=== PATIENT | male | born 1970 | race Two or more races ===

== ENCOUNTER 2024-04-29 21:49 | Inpatient (IN) | payer MEDICAID, OTHER ==
[~2024-04-29] VITALS: Ht 172.7 cm; Wt 84.1 kg
[2024-04-29 22:30] LABS: Basophils # (auto) 0.1 10 ^3/uL (0-0.2); Basophils % (auto) 0.8 % (0.0-2.0); Eosinophils # (auto) 0 10 ^3/uL (0-0.8); Eosinophils % (auto) 0.3 % (0.0-7.0); Hematocrit 29.2 % (41.0-53.0); Hemoglobin 9.6 g/dL (13.5-17.5); Lymphocytes # (auto) 0.5 10 ^3/uL (0.4-5.4); Lymphocytes % (auto) 7.7 % (10.0-50.0); Mean Corpuscular Hemoglobin 27.9 pg (28.0-32.0); Mean Corpuscular Hgb Conc. 32.8 g/dL (32.0-36.0); Mean Corpuscular Volume 85.1 fL (80.0-100.0); Monocytes # (auto) 0.5 10 ^3/uL (0-1.3); Monocytes % (auto) 6.9 % (0.0-12.0); Neutrophils # (auto) 5.5 10 ^3/uL (1.6-8.6); Neutrophils % (auto) 84.3 % (37.0-80.0); Nucleated Red Blood Cells % 0.1 %; Platelet Count (auto) 227 10^3/uL (140-450); Red Blood Cells 3.44 10^6/uL (4.5-5.90); Red Cell Distribution Width 18.4 % (11.8-14.3); White Blood Cell 6.6 10^3/uL (4.4-10.8)
[2024-04-29 22:42] VITALS: PULSE 80; RESP 20; O2SAT 97
[2024-04-29 22:47] LABS: Alanine Aminotransferase 57 U/L (7-40); Albumin 3.7 g/dL (3.2-4.8); Alkaline Phosphatase 70 U/L (46-116); Anion Gap 10 (5-15); Aspartate Aminotransferase 65 U/L (13-40); Bilirubin, Total 0.3 mg/dL (0.2-1.0); Blood Urea Nitrogen 58 mg/dL (9-23); Calcium 8.4 mg/dL (8.7-10.4); Carbon Dioxide 20 mmol/L (20-30); Chloride 108 mmol/L (98-107); Glucose 53 mg/dL (74-106); Potassium 4.4 mmol/L (3.5-5.1); Sodium 138 mmol/L (136-145); Total Protein 6.2 g/dL (5.7-8.2)
[2024-04-29] MEDS: DEXTROSE 10% 1,000 ML IV ONE (23:42)
[2024-04-30] MEDS: ASPirin-EC 325mg tab PO ONE (00:43)
[2024-04-30 00:57] LABS: Urine Bacteria None Seen /hpf (None Seen)
[2024-04-30] MEDS ORDERED: DOCUSATE SOD 100 MG CAP PO PRN (01:00)
[2024-04-30] MEDS ORDERED: IBUPROFEN 600 MG TAB PO PRN (01:00)
[2024-04-30] MEDS ORDERED: MORPHINE SULFATE INJ 2 MG/ml SYRG IV PRN ×2 (01:00→01:15)
[2024-04-30] MEDS: amLODIPine BESYLATE 5 MG TAB PO ONE (01:00)
[2024-04-30] MEDS ORDERED: ACETAMINOPHEN 325 MG TAB PO PRN (01:00)
[2024-04-30] MEDS ORDERED: ONDANSETRON HCL 4 MG/2 ML VIAL IV PRN (01:00)
[2024-04-30] MEDS ORDERED: HYDROcodone-ACET 5/325MG TAB PO PRN (01:00)
[2024-04-30] MEDS ORDERED: NITROGLYCERIN 0.4 MG SL TAB SL PRN (01:15)
[2024-04-30 01:48] LABS: Urine Blood 2+ /uL (Negative); Urine Clarity Clear (Clear); Urine Color Light-Yellow (Yellow); Urine Protein, UAD 3+ (Negative); Urine Specific Gravity 1.013 (1.001-1.035); Urine Urobilinogen Normal (Negative); Urine WBC 4 /hpf (0 - 3)
[2024-04-30] MEDS: DEXTROSE (50%) 50ML SYRG IV PRN (02:19)
[2024-04-30] MEDS: hydrALAZINE HCL 20 MG/ML VL IV PRN (02:38)
[2024-04-30] MEDS: InsuLIN REG 1unit/0.01ml Soln (100units/ml) SC SCH (04:00)
[2024-04-30] MEDS: ACCU-CHEK COMFORT CURVE STRIP VI SCH (04:04)
[2024-04-30] MEDS: SODIUM CHLOR 0.9% PF (SALINE LOCK) 10ML VIAL/SYR IV SCH (06:06)
[2024-04-30] MEDS: cloNIDine HCL 0.1 MG TAB PO PRN (06:09)
[2024-04-30 07:28] VITALS: PULSE 78; RESP 21; O2SAT 97
[2024-04-30] MEDS: DEXTROSE 10% 1,000 ML IV SCH (07:35)
[2024-04-30] MEDS: ASPirin 81 mg TAB PO SCH (10:19)
[2024-04-30] MEDS: B-COMPLEX W/ C & FOLIC ACID(NEPHROVITE TAB) PO SCH (10:19)
[2024-04-30] MEDS: CARVEDILOL 12.5 MG TAB PO SCH (10:21)
[2024-04-30] MEDS: amLODIPine BESYLATE 5 MG TAB PO SCH (10:21)
[2024-04-30 11:37] LABS: Chloride 110 mmol/L (98-107); Potassium 3.6 mmol/L (3.5-5.1); Sodium 138 mmol/L (136-145)
[2024-04-30 11:38] LABS: Anion Gap 12 (5-15); Carbon Dioxide 16 mmol/L (20-30)
[2024-04-30 11:39] LABS: Calcium 7.8 mg/dL (8.7-10.4)
[2024-04-30 11:43] LABS: Blood Urea Nitrogen 57 mg/dL (9-23); Glucose 71 mg/dL (74-106)
[2024-04-30 12:22] LABS: Magnesium 1.4 mg/dL (1.6-2.6)
[2024-04-30 12:24] LABS: Phosphorus 5.3 mg/dL (2.4-5.1)
[2024-04-30 12:49] LABS: Basophils # (auto) 0 10 ^3/uL (0-0.2); Eosinophils # (auto) 0.1 10 ^3/uL (0-0.8); Eosinophils % (auto) 1.4 % (0.0-7.0); Monocytes # (auto) 0.6 10 ^3/uL (0-1.3); Monocytes % (auto) 11.1 % (0.0-12.0); Platelet Count (auto) 192 10^3/uL (140-450)
[2024-04-30 12:51] LABS: Basophils % (auto) 0.5 % (0.0-2.0); Hematocrit 25.4 % (41.0-53.0); Lymphocytes # (auto) 0.7 10 ^3/uL (0.4-5.4); Lymphocytes % (auto) 14.3 % (10.0-50.0); Mean Corpuscular Hemoglobin 27.8 pg (28.0-32.0); Mean Corpuscular Hgb Conc. 31.5 g/dL (32.0-36.0); Mean Corpuscular Volume 88.2 fL (80.0-100.0); Neutrophils # (auto) 3.8 10 ^3/uL (1.6-8.6); Neutrophils % (auto) 72.7 % (37.0-80.0); Nucleated Red Blood Cells % 0.1 %; Red Blood Cells 2.89 10^6/uL (4.5-5.90); Red Cell Distribution Width 18.7 % (11.8-14.3); White Blood Cell 5.2 10^3/uL (4.4-10.8)
[2024-04-30 13:26] LABS: Alanine Aminotransferase 38 U/L (7-40); Albumin 2.8 g/dL (3.2-4.8); Alkaline Phosphatase 52 U/L (46-116); Anion Gap 9 (5-15); Aspartate Aminotransferase 28 U/L (13-40); BUN/Creatinine Ratio 6.3 (10.0-20.0); Bilirubin, Total 0.4 mg/dL (0.2-1.0); Blood Urea Nitrogen 50 mg/dL (9-23); Calcium 7.5 mg/dL (8.7-10.4); Carbon Dioxide 18 mmol/L (20-30); Chloride 107 mmol/L (98-107); Glucose 129 mg/dL (74-106); Potassium 3.8 mmol/L (3.5-5.1); Sodium 134 mmol/L (136-145); Total Protein 4.9 g/dL (5.7-8.2)
[2024-04-30] MEDS: SODIUM CHLORIDE 0.9% 1,000 ML IV SCH ×2 (13:30→16:00)
[2024-04-30 13:41] VITALS: BP 117/64; PULSE 68; RESP 18; TEMP 98.1; O2SAT 98
[2024-04-30 13:50] LABS: Creatinine, Urine 80.76 mg/dL (30.0-125.0)
[2024-04-30 13:52] LABS: Protein, Urine 586.1 mg/dL (0.0-11.9)
[2024-04-30] MEDS: MAGNESIUM SULFATE 1GM/100ML 100 ML IV SCH (16:00)
[2024-04-30 16:16] VITALS: PULSE 69
[2024-04-30 18:02] LABS: Base Excess -8.5 mmol/L (-2.0-2.0)
[2024-04-30] MEDS: FUROSEMIDE 40 MG/4 ML VIAL IV ONE (18:53)
[2024-04-30] MEDS: CALCIUM ACETATE 667 MG CAP PO SCH (18:53)
[2024-04-30] MEDS: MAGNESIUM OXIDE 400 MG TAB PO ONE (18:53)
[2024-04-30 20:00] VITALS: PULSE 68
[2024-04-30 21:00] VITALS: BP 135/82; PULSE 72; RESP 18; TEMP 98.5; O2SAT 100
[2024-04-30] MEDS: SODIUM BICARBONATE 650 MG TAB PO SCH (21:09)
[2024-04-30] MEDS: ATORVASTATIN 20 MG TAB PO SCH (21:09)
[2024-05-01] VITALS (10 sets, daily range): BP systolic 103–154; BP diastolic 52–93; PULSE 64–83; RESP 16–20; TEMP 98–98.5; O2SAT 96–100
[2024-05-01 05:52] LABS: Eosinophils # (auto) 0.2 10 ^3/uL (0-0.8); Hemoglobin 8.4 g/dL (13.5-17.5); Monocytes # (auto) 0.5 10 ^3/uL (0-1.3); White Blood Cell 5.8 10^3/uL (4.4-10.8)
[2024-05-01 05:55] LABS: Basophils # (auto) 0.1 10 ^3/uL (0-0.2); Basophils % (auto) 1.1 % (0.0-2.0); Eosinophils % (auto) 2.8 % (0.0-7.0); Lymphocytes # (auto) 1.2 10 ^3/uL (0.4-5.4); Lymphocytes % (auto) 20.8 % (10.0-50.0); Mean Corpuscular Hemoglobin 27.9 pg (28.0-32.0); Mean Corpuscular Hgb Conc. 32.2 g/dL (32.0-36.0); Mean Corpuscular Volume 86.6 fL (80.0-100.0); Monocytes % (auto) 9.3 % (0.0-12.0); Neutrophils # (auto) 3.8 10 ^3/uL (1.6-8.6); Platelet Count (auto) 198 10^3/uL (140-450); Red Cell Distribution Width 18.4 % (11.8-14.3)
[2024-05-01 06:07] LABS: % Iron Saturation 17.2 % (20-55)
[2024-05-01 06:08] LABS: Alanine Aminotransferase 39 U/L (7-40); Alkaline Phosphatase 52 U/L (46-116); Anion Gap 7 (5-15); BUN/Creatinine Ratio 6.6 (10.0-20.0); Blood Urea Nitrogen 56 mg/dL (9-23); Calcium 7.8 mg/dL (8.7-10.4); Carbon Dioxide 19 mmol/L (20-30); Chloride 110 mmol/L (98-107); Glucose 104 mg/dL (74-106); Magnesium 1.8 mg/dL (1.6-2.6); Potassium 4.6 mmol/L (3.5-5.1); Sodium 136 mmol/L (136-145)
[2024-05-01 06:09] LABS: Albumin 2.9 g/dL (3.2-4.8); Aspartate Aminotransferase 26 U/L (13-40); Bilirubin, Total 0.3 mg/dL (0.2-1.0); Total Protein 5.2 g/dL (5.7-8.2)
[2024-05-01] MEDS: MAGNESIUM OXIDE 400 MG TAB PO SCH (10:00)
[2024-05-01] MEDS: FUROSEMIDE 40 MG/4 ML VIAL IV SCH (10:00)
[2024-05-01] MEDS: ENOXAPARIN SOD 30 MG/0.3 ML SYRINGE SC ONE (10:30)
[2024-05-01] MEDS: ADENOSINE 71 MG in GIVE UN-DILUTED 0 ML IV STA (10:42)
[2024-05-01] MEDS ORDERED: AMLO1TAB23 PO (12:20)
[2024-05-01] MEDS ORDERED: HYDR50TA47 PO (12:20)
[2024-05-01] MEDS ORDERED: FURO40TA4 PO (12:20)
[2024-05-01] MEDS ORDERED: GLIP5TAB21 PO (12:20)
[2024-05-02 01:00] VITALS: BP 138/74; PULSE 74; RESP 16; TEMP 97.9; O2SAT 97
[2024-05-02 05:00] VITALS: BP 132/74; PULSE 74; RESP 16; TEMP 98.8; O2SAT 94
[2024-05-02 07:21] LABS: Basophils # (auto) 0.1 10 ^3/uL (0-0.2); Eosinophils # (auto) 0.2 10 ^3/uL (0-0.8); Hemoglobin 8.4 g/dL (13.5-17.5); Lymphocytes # (auto) 0.9 10 ^3/uL (0.4-5.4); Monocytes # (auto) 0.6 10 ^3/uL (0-1.3); White Blood Cell 6.1 10^3/uL (4.4-10.8)
[2024-05-02 07:23] LABS: Basophils % (auto) 1.2 % (0.0-2.0); Eosinophils % (auto) 2.5 % (0.0-7.0); Hematocrit 25.7 % (41.0-53.0); Lymphocytes % (auto) 14.8 % (10.0-50.0); Mean Corpuscular Hemoglobin 27.8 pg (28.0-32.0); Mean Corpuscular Hgb Conc. 32.6 g/dL (32.0-36.0); Mean Corpuscular Volume 85.1 fL (80.0-100.0); Monocytes % (auto) 9.9 % (0.0-12.0); Neutrophils # (auto) 4.3 10 ^3/uL (1.6-8.6); Neutrophils % (auto) 71.6 % (37.0-80.0); Platelet Count (auto) 214 10^3/uL (140-450); Red Blood Cells 3.02 10^6/uL (4.5-5.90); Red Cell Distribution Width 18.2 % (11.8-14.3)
[2024-05-02 07:34] LABS: Alanine Aminotransferase 33 U/L (7-40); Albumin 3.1 g/dL (3.2-4.8); Alkaline Phosphatase 53 U/L (46-116); Anion Gap 8 (5-15); Aspartate Aminotransferase 19 U/L (13-40); BUN/Creatinine Ratio 7.9 (10.0-20.0); Calcium 8.2 mg/dL (8.7-10.4); Carbon Dioxide 20 mmol/L (20-30); Chloride 111 mmol/L (98-107); Glucose 107 mg/dL (74-106); Magnesium 1.8 mg/dL (1.6-2.6); Potassium 4.4 mmol/L (3.5-5.1); Sodium 139 mmol/L (136-145)
[2024-05-02 07:35] LABS: Bilirubin, Total 0.3 mg/dL (0.2-1.0); Total Protein 5.3 g/dL (5.7-8.2)
[2024-05-02 07:43] LABS: Blood Urea Nitrogen 67 mg/dL (9-23)
[2024-05-02 08:00] VITALS: PULSE 84
[2024-05-02 08:40] VITALS: BP 172/104; PULSE 74; RESP 19; TEMP 98.7; O2SAT 97
[2024-05-02] MEDS: ENOXAPARIN SOD 30 MG/0.3 ML SYRINGE SC SCH (09:35)
[2024-05-02] MEDS: hydrALAZINE HCL 20 MG/ML VL IV ONE (12:26)
[2024-05-02 12:35] VITALS: BP 142/87; PULSE 77; RESP 19; TEMP 98.4; O2SAT 97
[2024-05-02] MEDS ORDERED: EPOETIN ALFA-EPBX 10,000 UNIT/1ML VIAL SC ONE (12:45)
[2024-05-02] MEDS: NIFEdipine ER 30 MG TAB PO ONE (15:10)
[2024-05-02] MEDS: ERGOCALCIFEROL 50,000 UNIT(1.25MG) CAP PO ONE (15:11)
[2024-05-02 16:25] VITALS: BP 164/98; PULSE 75; RESP 19; TEMP 98.2; O2SAT 94
[2024-05-02] MEDS ORDERED: hydrALAZINE HCL 25 MG TAB PO SCH ×2 (22:00)
[2024-05-02] MEDS ORDERED: CARVEDILOL 12.5 MG TAB PO SCH (22:00)
[2024-05-03] MEDS ORDERED: FUROSEMIDE 40 MG TAB PO SCH (10:00)
[2024-05-03] MEDS ORDERED: NIFEdipine ER 30 MG TAB PO SCH (10:00)
[2024-05-03] MEDS ORDERED: amLODIPine BESYLATE 5 MG TAB PO SCH (10:00)
[2024-05-03] MEDS ORDERED: SODIUM FERR GLUC 62.5MG/5ML 110 ML IV SCH (12:00)
== END 2024-05-02 17:55 | disposition left against medical advice (07) | DRG 194 ==
LOC: ER 21:49 → EDBD 21:49 → TELE 04-30 01:14 → TELE-WESTW 04-30 15:02
PROVIDERS: ADMIT Internal Medicine Pulmonary Disease; ATTEND Internal Medicine Pulmonary Disease
DX: I13.2 Hypertensive heart and chronic kidney disease with heart failure and with stage 5 chronic kidney disease, or end stage renal disease (principal); I21.A1 Myocardial infarction type 2; E11.649 Type 2 diabetes mellitus with hypoglycemia without coma; E87.20 Acidosis, unspecified; D63.1 Anemia in chronic kidney disease; N17.9 Acute kidney failure, unspecified; N25.81 Secondary hyperparathyroidism of renal origin; I50.23 Acute on chronic systolic (congestive) heart failure; N18.5 Chronic kidney disease, stage 5; E55.9 Vitamin D deficiency, unspecified; I16.1 Hypertensive emergency; E11.22 Type 2 diabetes mellitus with diabetic chronic kidney disease; T46.4X6A Underdosing of angiotensin-converting-enzyme inhibitors, initial encounter; Z91.128 Patient's intentional underdosing of medication regimen for other reason; R74.8 Abnormal levels of other serum enzymes; Z91.199 Patient's noncompliance with other medical treatment and regimen due to unspecified reason; Z86.73 Personal history of transient ischemic attack (TIA), and cerebral infarction without residual deficits; Z53.21 Procedure and treatment not carried out due to patient leaving prior to being seen by health care provider
CPT/HCPCS: 36415; 36600; 70450; 71045; 76775; 78452; 80048; 80053; 81001; 82306; 82570; 82728; 82805; 82962; 83036; 83540; 83550; 83735; 83880; 83935; 83970; 84100; 84156; 84300; 84484; 85025; 86850; 86900; 86901; 93005; 93017; 93306; G0378; J0153; J1815